=== PATIENT | male | born 1965 | race American Indian/Alaskan Native ===

== ENCOUNTER 2017-08-01 17:52 | Emergency (ER) | payer BC, MEDICARE ==
[2017-08-01 17:52] VITALS: BMI 36.0
[2017-08-01 17:57] VITALS: BP 117/70; RESP 16; TEMP 98.5; O2SAT 98
[2017-08-01] MEDS ORDERED: Sodium Chloride 0.9% 1,000 ML IV STA (18:58)
[2017-08-01 19:36] LABS: BASO % 0.2 % (0.0-2.0); EOS # 0.1 K/uL (0.0-0.7); EOS % 0.3 % (0.0-4.0); LYMPH # 0.5 K/uL (1.0-4.3); MEAN CELL VOLUME 82.7 fl (80.0-94.0); MEAN CORPUSCULAR HEMOGLOBIN 27.1 pg (27.0-31.0); MEAN CORPUSCULAR HGB CONC 32.8 g/dL (33.0-37.0); MEAN PLATELET VOLUME 8.7 fl (7.2-11.7); MONO # 0.7 K/uL (0.0-0.8); MONO % 4.3 % (0.0-10.0); NEUT # 15.7 K/uL (1.8-7.0); NEUT % 92.2 % (50.0-75.0); PLATELET COUNT 171 K/uL (130-400); RBC 5.88 Mil/uL (4.40-5.90); RED CELL DISTRIBUTION WIDTH 14.1 % (11.5-14.5); WHITE BLOOD COUNT 17.1 K/uL (4.8-10.8)
[2017-08-01 19:47] LABS: ALB/GLOB RATIO 1.2 (1.0-2.1); ALBUMIN 4.1 g/dL (3.5-5.0); ALT/SGPT 54 U/L (21-72); AST/SGOT 23 U/L (17-59); BLOOD UREA NITROGEN 23 mg/dl (9-20); CALCIUM 9.2 mg/dL (8.4-10.2); GFR AFRICAN-AMERICAN > 60; GFR NON-AFRICAN AMERICAN > 60; LIPASE 81 U/L (23-300)
--- NOTE | 2017-08-01 19:49 | ED PDOC ---
HPI: General Adult Time Seen by Provider: 08/01/17 18:52 Chief Complaint (Nursing): GI Problem Chief Complaint (Provider): Vomiting and diarrhea History Per: Patient History/Exam Limitations: no limitations Onset/Duration Of Symptoms: Days (x1) Current Symptoms Are (Timing): Still Present Additional Complaint(s): 52 year old male, with past medical history of type 2 diabetes, presented to ED with complaints of vomiting and diarrhea which began earlier today. Patient reports, diarrhea is watery and has had x4 episodes of vomiting which were non bloody and non bilious. Patient is feeling better now. He also indicated that he had a brief syncopal episode on the bus possibly due to dehydration. PCP: Dr. Benitez Past Medical History Reviewed: Historical Data, Nursing Documentation, Vital Signs Vital Signs: Last Vital Signs Temp 98.5 F 08/01/17 17:55 Pulse 67 08/01/17 19:57 Resp 16 08/01/17 17:55 BP 117/70 08/01/17 17:55 Pulse Ox 98 08/01/17 23:43 - Medical History PMH: Back Problems, Diabetes - Surgical History Surgical History: Hernia Repair, Tonsillectomy - Family History Family History: States: Diabetes - Social History Current smoker - smoking cessation education provided: No Alcohol: None Drugs: Denies - Immunization History Hx Tetanus Toxoid Vaccination: No Hx Influenza Vaccination: No Hx Pneumococcal Vaccination: No - Home Medications Home Medications: Ambulatory Orders Medication Instructions Recorded Cyclobenzaprine HCl [Flexeril] 10 mg PO HS #10 tab 01/13/15 Ibuprofen [Motrin] 600 mg PO Q6 PRN #20 tab 01/13/15 MetFORMIN [glucoPHAGE] PO DAILY 01/13/15 Oxycodone HCl/Acetaminophen 1 tab PO Q4 #10 tab 01/13/15 [Percocet 325 mg-5 mg] Ondansetron [Zofran] 4 mg PO Q6H PRN #5 tab 08/01/17 - Allergies Allergies/Adverse Reactions: Allergies Allergy/AdvReac Type Severity Reaction Status Date / Time No Known Allergies Allergy Verified 08/01/17 17:54 Review of Systems ROS Statement: Except As Marked, All Systems Reviewed And Found Negative Constitutional: Negative for: Fever Gastrointestinal: Positive for: Vomiting (x4), Diarrhea. Negative for: Nausea Physical Exam - Reviewed Nursing Documentation Reviewed: Yes Vital Signs Reviewed: Yes - Physical Exam Appears: Positive for: Non-toxic, No Acute Distress Head Exam: Positive for: ATRAUMATIC, NORMAL INSPECTION, NORMOCEPHALIC Skin: Positive for: Normal Color, Warm, Dry Eye Exam: Positive for: Normal appearance, EOMI, PERRL ENT: Positive for: Normal ENT Inspection Neck: Positive for: Normal, Painless ROM Cardiovascular/Chest: Positive for: Regular Rate, Rhythm. Negative for: Murmur Respiratory: Positive for: Normal Breath Sounds. Negative for: Wheezing, Respiratory Distress Gastrointestinal/Abdominal: Positive for: Normal Exam, Soft. Negative for: Tenderness Back: Positive for: Normal Inspection. Negative for: L CVA Tenderness, R CVA Tenderness, Vertebral Tenderness Extremity: Positive for: Normal ROM (upper/lower) Neurologic/Psych: Positive for: Alert, Oriented. Negative for: Motor/Sensory Deficits - Laboratory Results Result Diagrams: 08/01/17 19:30 08/01/17 19:30 - ECG ECG: Positive for: Interpreted By Me, Viewed By Me ECG Rhythm: Positive for: Normal QRS, Sinus Rhythm. Negative for: ST/T Changes Rate: 67 O2 Sat by Pulse Oximetry: 98 (RA) Pulse Ox Interpretation: Normal Medical Decision Making Medical Decision Making: Initial Impression: vomiting, diarrhea, syncope - due to dehydration Initial Plan: CMP Lipase CBC Loperamide 4mg PO Sodium chloride 1000mL IV Ondansetron ODT 4mg PO 19:[address] Yap. Pending labs and reassessment. Scribe Attestation: Documented by Mychal Culver acting as a scribe for Tomi Vasquez MD. Provider Scribe Attestation: All medical record entries made by the Scribe were at my direction and personally dictated by me. I have reviewed the chart and agree that the record accurately reflects my personal performance of the history, physical exam, medical decision making, and the department course for this patient. I have also personally directed, reviewed, and agree with the discharge instructions and disposition. Disposition - Clinical Impression Clinical Impression: Gastroenteritis - Patient ED Disposition Is Patient to be Admitted: Transfer of Care Counseled Patient/Family Regarding: Studies Performed, Diagnosis - Disposition Referrals: [facility] [Outside] [facility] [Outside] Disposition: Transfer of Care Disposition Time: 19:00 Condition: STABLE Additional Instructions: follow up with your primary doctor in 1-2 days return to the ED with any worsening or concerning symptoms Prescriptions: Ondansetron [Zofran] 4 mg PO Q6H PRN #5 tab PRN Reason: Nausea/Vomiting Instructions: Gastroenteritis (ED) Forms: [employer] (Slovak), [facility] ED School/Work Excuse Patient Signed Over To: Jony Yap
[2017-08-01 19:57] VITALS: PULSE 67
--- NOTE | 2017-08-01 19:59 | ED PDOC ---
- Laboratory Results Result Diagrams: 08/01/17 19:30 08/01/17 19:30 - ECG O2 Sat by Pulse Oximetry: 98 (RA) Medical Decision Making Medical Decision Makin:00 Patient endorsed to me from Dr. Vasquez. Pending labs and reevaluation. 2307 CT Abd/ Pelvis FINDINGS: Limitations: Lack of intravenous contrast. Lung bases: Minimal atelectasis/scarring. Mediastinum: Mild mural thickening vs underdistention of distal esophagus. ABDOMEN: Liver: Fatty infiltration. Gallbladder and bile ducts: Calcified gallstone. No significant ductal dilation. Pancreas: Unremarkable. No ductal dilation. Spleen: No splenomegaly. Adrenals: Mild hypertrophy of adrenal glands. Minimal stranding of adrenal glands, nonspecific. Kidneys and ureters: Minimal stranding about kidneys, nonspecific. Probable 5.2 cm RIGHT renal cyst. Too small to characterize lesion within LEFT kidney. No renal calculi. No hydronephrosis. Stomach and bowel: Few scattered diverticula within colon. No associated inflammatory stranding. Segmental areas of probable underdistention of colon. No definite mural thickening. No obstruction. PELVIS: Appendix: Normal caliber. No inflammation. Bladder: Unremarkable. No stones. Reproductive: Mildly enlarged prostate. ABDOMEN and PELVIS: Intraperitoneal space: No significant fluid collection. No free air. Bones/joints: Probable bone island. Degenerative changes of spine. No acute fracture. Soft tissues: Tiny umbilical hernia containing fat. Vasculature: Unremarkable. No aneurysm. Lymph nodes: No pathologically enlarged lymph nodes. IMPRESSION: 1. Diverticulosis without definite CT evidence of diverticulitis. 2. Prostate enlargement. Followup as clinically warranted. 3. Incidental/non-acute findings are described above. Dictated By: Vik Lang MD Dictated Date/Time: 08/01/172307 Signed By: Vik Lang MD Date Signed: 2307 Transcribed By: ELROY Transcribe Date/Time : 08/01/172307 AC02/JESSICA 2310 Patient made aware of report on CT. pt tolerated PO and is stable for discharge. Disposition Counseled Patient/Family Regarding: Studies Performed, Diagnosis, Need For Followup - Clinical Impression Clinical Impression: Gastroenteritis - POA Present On Arrival: None - Disposition Referrals: [facility] [Outside] [facility] [Outside] Disposition: Routine/Home Disposition Time: 10:45 Condition: STABLE Additional Instructions: follow up with your primary doctor in 1-2 days return to the ED with any worsening or concerning symptoms Prescriptions: Ondansetron [Zofran] 4 mg PO Q6H PRN #5 tab PRN Reason: Nausea/Vomiting Instructions: Gastroenteritis (ED) Forms: [employer] ([place] Citizen), [facility] ED School/Work Excuse
[2017-08-01 21:34] LABS: LYMPHOCYTE 6 % (20-50); MONOCYTE 3 % (0-10); NEUTROPHIL 91 % (42-75); PLATELET ESTIMATE NORMAL (NORMAL); TOTAL CELLS COUNTED 100
--- NOTE | 2017-08-01 23:08 | CT ---
EXAM: CT Abdomen and Pelvis Without Intravenous Contrast CLINICAL HISTORY: 52 years old, male; Signs and symptoms; Vomiting and other: Diarrhea; Prior surgery; Surgery date: 6+ months; Surgery type: Hernia repair lt groin about 32 yrs ago; Additional info: Abd pain TECHNIQUE: Axial computed tomography images of the abdomen and pelvis without intravenous contrast. All CT scans at this facility use one or more dose reduction techniques, viz.: automated exposure control; ma/kV adjustment per patient size (including targeted exams where dose is matched to indication; i.e. head); or iterative reconstruction technique. Coronal and sagittal reformatted images were created and reviewed. COMPARISON: No relevant prior studies available. FINDINGS: Limitations: Lack of intravenous contrast. Lung bases: Minimal atelectasis/scarring. Mediastinum: Mild mural thickening vs underdistention of distal esophagus. ABDOMEN: Liver: Fatty infiltration. Gallbladder and bile ducts: Calcified gallstone. No significant ductal dilation. Pancreas: Unremarkable. No ductal dilation. Spleen: No splenomegaly. Adrenals: Mild hypertrophy of adrenal glands. Minimal stranding of adrenal glands, nonspecific. Kidneys and ureters: Minimal stranding about kidneys, nonspecific. Probable 5.2 cm RIGHT renal cyst. Too small to characterize lesion within LEFT kidney. No renal calculi. No hydronephrosis. Stomach and bowel: Few scattered diverticula within colon. No associated inflammatory stranding. Segmental areas of probable underdistention of colon. No definite mural thickening. No obstruction. PELVIS: Appendix: Normal caliber. No inflammation. Bladder: Unremarkable. No stones. Reproductive: Mildly enlarged prostate. ABDOMEN and PELVIS: Intraperitoneal space: No significant fluid collection. No free air. Bones/joints: Probable bone island. Degenerative changes of spine. No acute fracture. Soft tissues: Tiny umbilical hernia containing fat. Vasculature: Unremarkable. No aneurysm. Lymph nodes: No pathologically enlarged lymph nodes. IMPRESSION: 1. Diverticulosis without definite CT evidence of diverticulitis. 2. Prostate enlargement. Followup as clinically warranted. 3. Incidental/non-acute findings are described above.
== END 2017-08-01 23:52 | disposition home or self-care (01) ==
LOC: H.ER 17:52
DX: K52.9 Noninfective gastroenteritis and colitis, unspecified (principal); E11.9 Type 2 diabetes mellitus without complications; Z79.84 Long term (current) use of oral hypoglycemic drugs
CPT/HCPCS: 74176; 80053; 82948; 83690; 85025; 96360; 99284; J7040

== ENCOUNTER 2017-10-14 16:23 | Emergency (ER) | payer BC, MEDICARE, OTHER ==
[2017-10-14 16:23] VITALS: BMI 36.0
[2017-10-14 16:33] VITALS: TEMP 97.9
--- NOTE | 2017-10-14 17:22 | ED PDOC ---
HPI: Abdomen Time Seen by Provider: 10/14/17 16:43 Chief Complaint (Nursing): Abdominal Pain Chief Complaint (Provider): Abdomial pain History Per: Patient History/Exam Limitations: no limitations Additional Complaint(s): Pt. presents with crampy mid abdominal pain associated with 2 episodes of large nonbloody diarrhea starting at 5 am. Pt. reports being at a work picnic yesterday, had some chicken, felt well until 5 am when crampy abd. pain and diarrhea started. Pt. received call from coworker who also had similar symptoms this am. Pt. otherwise feels well, no fevers, no n/v. Past Medical History Reviewed: Historical Data, Nursing Documentation, Vital Signs Vital Signs: Last Vital Signs Temp 97.9 F 10/14/17 16:31 Pulse 105 H 10/14/17 16:31 Resp 20 10/14/17 16:31 BP 138/84 10/14/17 16:31 Pulse Ox 97 10/14/17 18:37 - Medical History PMH: Back Problems, Diabetes - Surgical History Surgical History: Hernia Repair, Tonsillectomy - Family History Family History: States: Diabetes - Immunization History Hx Tetanus Toxoid Vaccination: No Hx Influenza Vaccination: No Hx Pneumococcal Vaccination: No - Home Medications Home Medications: Ambulatory Orders Medication Instructions Recorded Cyclobenzaprine HCl [Flexeril] 10 mg PO HS #10 tab 01/13/15 Ibuprofen [Motrin] 600 mg PO Q6 PRN #20 tab 01/13/15 MetFORMIN [glucoPHAGE] PO DAILY 01/13/15 Oxycodone HCl/Acetaminophen 1 tab PO Q4 #10 tab 01/13/15 [Percocet 325 mg-5 mg] Ondansetron [Zofran] 4 mg PO Q6H PRN #5 tab 08/01/17 - Allergies Allergies/Adverse Reactions: Allergies Allergy/AdvReac Type Severity Reaction Status Date / Time No Known Allergies Allergy Verified 10/14/17 16:31 Review of Systems ROS Statement: Except As Marked, All Systems Reviewed And Found Negative Constitutional: Negative for: Fever, Chills ENT: Positive for: Ear Pain (right ear infection, in treatment) Gastrointestinal: Positive for: Abdominal Pain, Diarrhea. Negative for: Nausea , Vomiting, Hematochezia Physical Exam - Reviewed Nursing Documentation Reviewed: Yes Vital Signs Reviewed: Yes - Physical Exam Appears: Positive for: Well Skin: Positive for: Normal Color Eye Exam: Positive for: Normal appearance ENT: Positive for: TM Is/Are (right TM mild erythema; left TM normal) Neck: Positive for: Supple Cardiovascular/Chest: Positive for: Regular Rate, Rhythm Respiratory: Positive for: Normal Breath Sounds Gastrointestinal/Abdominal: Positive for: Normal Exam, Soft. Negative for: Tenderness Neurologic/Psych: Positive for: Alert, Oriented - Laboratory Results Result Diagrams: 10/14/17 17:39 10/14/17 17:39 - ECG O2 Sat by Pulse Oximetry: 97 (RA) Pulse Ox Interpretation: Normal Medical Decision Making Medical Decision Making: Impression: Abdominal pain Plan: -- Labs -- IV Fluids Reassessment, pt. reports feeling better, labs discussed with pt. Re-exam, abdomen remain soft/nt, repeat hr 78, no distress. BRAT diet and increased po fluids stressed with instruction to return if recurrent pain, fevers, or new concerns. Disposition - Clinical Impression Clinical Impression: Abdominal pain, Otitis media - Patient ED Disposition Is Patient to be Admitted: No - Disposition Disposition: Routine/Home Condition: IMPROVED Instructions: Ear Infections (Otitis Media), Stomach Ache and Stomach Upset Forms: [facility] (Lao) - POA Present On Arrival: None
[2017-10-14 17:42] LABS: BASO # 0.1 K/uL (0.0-0.2); BASO % 0.8 % (0.0-2.0); EOS # 0.2 K/uL (0.0-0.7); EOS % 2.9 % (0.0-4.0); HEMOGLOBIN 14.1 g/dL (12.0-18.0); LYMPH # 1.7 K/uL (1.0-4.3); MEAN CELL VOLUME 82.1 fl (80.0-94.0); MEAN CORPUSCULAR HEMOGLOBIN 27.6 pg (27.0-31.0); MEAN CORPUSCULAR HGB CONC 33.6 g/dL (33.0-37.0); MEAN PLATELET VOLUME 8.6 fl (7.2-11.7); MONO # 0.6 K/uL (0.0-0.8); NEUT # 4.1 K/uL (1.8-7.0); NEUT % 61.3 % (50.0-75.0); RBC 5.1 Mil/uL (4.40-5.90); RED CELL DISTRIBUTION WIDTH 13.5 % (11.5-14.5); WHITE BLOOD COUNT 6.7 K/uL (4.8-10.8)
[2017-10-14 17:55] LABS: ALB/GLOB RATIO 1.3 (1.0-2.1); ALBUMIN 3.8 g/dL (3.5-5.0); ALT/SGPT 41 U/L (21-72); AST/SGOT 31 U/L (17-59); BLOOD UREA NITROGEN 16 mg/dl (9-20); GFR AFRICAN-AMERICAN > 60; GFR NON-AFRICAN AMERICAN > 60; LIPASE 73 U/L (23-300)
[2017-10-14] MEDS: Sodium Chloride 0.9% 1,000 ML IV SCH ×2 (18:06→18:38)
[2017-10-14 19:23] VITALS: BP 116/74; PULSE 66; RESP 18; O2SAT 100
== END 2017-10-14 19:20 | disposition home or self-care (01) ==
LOC: H.ER 16:23
DX: R10.9 Unspecified abdominal pain (principal); H66.91 Otitis media, unspecified, right ear; E11.9 Type 2 diabetes mellitus without complications; Z79.84 Long term (current) use of oral hypoglycemic drugs
CPT/HCPCS: 80053; 83690; 85025; 96360; 99283; J7030

== ENCOUNTER 2017-11-24 16:12 | Emergency (ER) | payer BC, MEDICARE, OTHER ==
[2017-11-24 16:13] VITALS: BMI 36.0
--- NOTE | 2017-11-24 17:59 | ED PDOC ---
HPI: General Adult Time Seen by Provider: 11/24/17 16:50 Chief Complaint (Nursing): ENT Problem Chief Complaint (Provider): Sinusitis History Per: Patient History/Exam Limitations: no limitations Onset/Duration Of Symptoms: Days Current Symptoms Are (Timing): Still Present Additional Complaint(s): 52 year old male with PMHx of diabetes presents to the ED for an evaluation of sinus pressure and clogged ear sensation onset 3 days ago. 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 Denies runny nose, cough or congestion. Notes pressure is worse when pending over PMD: No Family Provider Past Medical History Reviewed: Historical Data, Nursing Documentation, Vital Signs Vital Signs: Last Vital Signs Temp 99.3 F 11/24/17 16:27 Pulse 98 H 11/24/17 16:27 Resp 16 11/24/17 16:27 BP 146/77 11/24/17 16:27 Pulse Ox 98 11/24/17 18:11 - Medical History PMH: Back Problems, Diabetes - Surgical History Surgical History: Hernia Repair, Tonsillectomy - Family History Family History: States: Diabetes - Social History Current smoker - smoking cessation education provided: No Alcohol: None Drugs: Denies - Immunization History Hx Tetanus Toxoid Vaccination: No Hx Influenza Vaccination: No Hx Pneumococcal Vaccination: No - Home Medications Home Medications: Ambulatory Orders Medication Instructions Recorded Cyclobenzaprine HCl [Flexeril] 10 mg PO HS #10 tab 01/13/15 Ibuprofen [Motrin] 600 mg PO Q6 PRN #20 tab 01/13/15 MetFORMIN [glucoPHAGE] PO DAILY 01/13/15 Oxycodone HCl/Acetaminophen 1 tab PO Q4 #10 tab 01/13/15 [Percocet 325 mg-5 mg] Ondansetron [Zofran] 4 mg PO Q6H PRN #5 tab 08/01/17 Fluticasone Propionate [Flonase] 1 spr NS BID #1 spr 11/24/17 Methylprednisolone [Medrol Dose 4 mg PO DAILY #21 mg 11/24/17 Pack (21 tabs)] - Allergies Allergies/Adverse Reactions: Allergies Allergy/AdvReac Type Severity Reaction Status Date / Time No Known Allergies Allergy Verified 10/14/17 16:31 Review of Systems ROS Statement: Except As Marked, All Systems Reviewed And Found Negative Constitutional: Negative for: Fever ENT: Positive for: Ear Pain, Nose Pain. Negative for: Ear Discharge, Nose Discharge, Nose Congestion, Throat Swelling Respiratory: Negative for: Cough Physical Exam - Reviewed Nursing Documentation Reviewed: Yes Vital Signs Reviewed: Yes - Physical Exam Appears: Positive for: Well, Non-toxic, No Acute Distress Head Exam: Positive for: ATRAUMATIC, NORMAL INSPECTION, NORMOCEPHALIC Skin: Positive for: Normal Color, Warm, Dry Eye Exam: Positive for: Normal appearance ENT: Negative for: Normal ENT Inspection (ethmoid and maxillary sinus tenderness ) Cardiovascular/Chest: Positive for: Regular Rate, Rhythm. Negative for: Murmur Respiratory: Positive for: Normal Breath Sounds. Negative for: Decreased Breath Sounds, Wheezing, Respiratory Distress Neurologic/Psych: Positive for: Alert, Oriented (x3). Negative for: Motor/ Sensory Deficits - ECG O2 Sat by Pulse Oximetry: 98 (RA) Pulse Ox Interpretation: Normal Medical Decision Making Medical Decision Making: Time: 1649 Initial Impression: sinusitis Initial Plan: --Reevaluation Scribe Attestation: Documented by Shanda Garrido, acting as a scribe for Aishwarya Wu PA-C. Provider Scribe Attestation: All medical record entries made by the Scribe were at my direction and personally dictated by me. I have reviewed the chart and agree that the record accurately reflects my personal performance of the history, physical exam, medical decision making, and the department course for this patient. I have also personally directed, reviewed, and agree with the discharge instructions and disposition. Disposition - Clinical Impression Clinical Impression: Acute sinusitis - Disposition Disposition: Routine/Home Disposition Time: 18:13 Condition: GOOD Prescriptions: Fluticasone Propionate [Flonase] 1 spr NS BID #1 spr Methylprednisolone [Medrol Dose Pack (21 tabs)] 4 mg PO DAILY #21 mg Instructions: Sinusitis in Adults Forms: [facility] (Eritrean), [facility] ED School/Work Excuse
[2017-11-24 19:10] VITALS: BP 118/89; PULSE 78; RESP 18; TEMP 98; O2SAT 99
== END 2017-11-24 19:08 | disposition home or self-care (01) ==
LOC: H.ER 16:12
DX: J01.90 Acute sinusitis, unspecified (principal); E11.9 Type 2 diabetes mellitus without complications; Z79.84 Long term (current) use of oral hypoglycemic drugs

== ENCOUNTER 2018-01-23 14:36 | Emergency (ER) | payer OTHER ==
[2018-01-23 14:37] VITALS: BMI 36.0
[2018-01-23 14:52] VITALS: TEMP 97.9; O2SAT 98
--- NOTE | 2018-01-23 16:03 | ED PDOC ---
HPI: Trauma/Fall - HPI Time Seen by Provider: 01/23/18 15:25 Chief Complaint (Nursing): Back Pain Chief Complaint (Provider): Back and neck pain History Per: Patient History/Exam Limitations: no limitations Associated Symptoms: denies: Dizziness, LOC Additional Complaint(s): 52 year old male presents to the ED for evaluation of left sided neck and back pain. Patient reports he was on the treadmill at the gym, when it suddenly stopped and began going in reverse causing him to fall back hitting his neck and back. Patient states he took Aleve at 06:30 this morning with little improvement. He indicates the neck pain is a 5/10 and back pain is a 7/10. Denies numbness, headache, dizziness, chest pain, abdominal pain, LOC, vision change, weakness, fever, saddle anesthesia, or incontinence. PMD: Dr. Benitez Past Medical History Reviewed: Historical Data, Nursing Documentation, Vital Signs Vital Signs: Last Vital Signs Temp 97.9 F 01/23/18 14:51 Pulse 96 H 01/23/18 14:51 Resp 18 01/23/18 14:51 BP 145/92 H 01/23/18 14:51 Pulse Ox 98 01/23/18 14:51 - Medical History PMH: Back Problems, Diabetes Other PMH: Scoliosis - Surgical History Surgical History: Hernia Repair, Tonsillectomy Other surgeries: Lipoma removed - Family History Family History: States: Diabetes - Social History Current smoker - smoking cessation education provided: No Alcohol: None Drugs: Denies - Home Medications Home Medications: Ambulatory Orders Medication Instructions Recorded Cyclobenzaprine HCl [Flexeril] 10 mg PO HS #10 tab 01/13/15 Ibuprofen [Motrin] 600 mg PO Q6 PRN #20 tab 01/13/15 Oxycodone HCl/Acetaminophen 1 tab PO Q4 #10 tab 01/13/15 [Percocet 325 mg-5 mg] RX: MetFORMIN [glucoPHAGE] PO DAILY 01/13/15 Ondansetron [Zofran] 4 mg PO Q6H PRN #5 tab 08/01/17 Fluticasone Propionate [Flonase] 1 spr NS BID #1 spr 11/24/17 Methylprednisolone [Medrol Dose 4 mg PO DAILY #21 mg 11/24/17 Pack (21 tabs)] Cyclobenzaprine [Cyclobenzaprine 10 mg PO Q8 PRN #12 tab 01/23/18 HCl] Meloxicam [Mobic] 15 mg PO DAILY #10 tab 01/23/18 - Allergies Allergies/Adverse Reactions: Allergies Allergy/AdvReac Type Severity Reaction Status Date / Time No Known Allergies Allergy Verified 10/14/17 16:31 Review of Systems ROS Statement: Except As Marked, All Systems Reviewed And Found Negative Eyes: Negative for: Vision Change Cardiovascular: Negative for: Chest Pain Gastrointestinal: Negative for: Abdominal Pain Genitourinary Male: Negative for: Incontinence Musculoskeletal: Positive for: Neck Pain, Back Pain Neurological: Negative for: Numbness, Dizziness, Other (LOC) Physical Exam - Reviewed Nursing Documentation Reviewed: Yes Vital Signs Reviewed: Yes - Physical Exam Comments: GENERAL APPEARANCE: Patient is awake, alert, oriented x 3, in no acute distress. Resting comfortably. SKIN: Warm, dry; (-) cyanosis HEAD: (-) scalp swelling or tenderness EYES: (-) conjunctival pallor, (-) scleral icterus. ENMT: Mandible FROM, nontender. (-) sinus or facial bone tenderness; mucous membranes are moist. Airway patent, (-) stridor. NECK: Full ROM, (+) supple, (+) left paracervical tenderness, (-) midline cervical tenderness. CHEST AND RESPIRATORY: (-) rales, (-) rhonchi, (-) wheezes; breath sounds equal bilaterally. Respirations even and nonlabored. HEART AND CARDIOVASCULAR: (-) irregularity ABDOMEN AND GI: Soft; (-) tenderness. BACK: (+) mildline lumbar tenderness, (-) paralumbar tenderness EXTREMITIES: (-) deformity. NEURO AND PSYCH: Mental status as above. inspector and sorter: Pupils equal and reactive; EOMI; (-) facial asymmetry; tongue and uvula midline. Gait: Steady. Speech: clear. Cerebellar tests grossly intact. - ECG O2 Sat by Pulse Oximetry: 98 (RA) Pulse Ox Interpretation: Normal Medical Decision Making Medical Decision Making: Initial Impression: Acute cervical strain, lower back pain s/p fall Initial Plan: --Lumbar spine CT --Toradol 30mg IM --Valium 5mg PO (Not driving home) 1750 CT reviewed, radiology report follows Date of service: 01/23/2018 PROCEDURE: CT Lumbar Spine without contrast HISTORY: s/p fall, midline tenderness COMPARISON: None available. TECHNIQUE: Axial computed tomography images were obtained of the lumbar spine without the use of intravenous contrast. Coronal and sagittal reformatted images were creat ed and reviewed. Radiation dose: Total exam DLP = 921.96 mGy-cm. This CT exam was performed using one or more of the following dose reduction techniques: Automated exposure control, adjustment of the mA and/or kV according to patient size, and/or use of iterative reconstruction technique. FINDINGS: VERTEBRAE: There is a grade 1 anterolisthesis at L3-4 with lumbar curvature otherwise well aligned. No spondylolysis, however, marked facet degenerative changes at L3-4 are the apparent cause of the spondylolisthesis. No fracture. No destructive bony lesion appreciated. Visualized prevertebral paraspinal soft tissues appear diffusely unremarkable. L5 appears sacralized. DISCS/SPINAL CANAL/NEURAL FORAMINA: L1-2: Unremarkable. L2-3: Unremarkable. L3-4: Borderline central stenosis caused by spondylolisthesis at this level with symmetric, borderline bilateral neural foraminal stenoses. L4-5: Lateral recesses are encroached by disc osteophyte complex symmetrically and there is moderate degenerative neural foraminal stenosis bilaterally due to disc osteophyte changes combining with facet joint degenerative arthropathy. L5-S1: Unremarkable. OTHER FINDINGS: None. IMPRESSION: 1. Grade 1 anterolisthesis L3-4 resulting in borderline central canal and bilateral neural foraminal stenoses. Positional L5 appears sacralized. 2. Moderate degenerative neural foraminal stenosis L4-5 with lateral recess is encroached by disc osteophyte complex appears circumferential at L4-5 as well. 3. No gross disc herniation however MRI is more sensitive for evaluation of disc material and can be performed if clinically warranted. Repeat BP: 137/81 Repeat HR: 86 On re-evaluation, patient reports improvement of symptoms. On exam, patient remains AAOx3, in no acute distress. Lungs clear to auscultation, cardiac RRR, repeat neuro exam shows no focal findings. Vitals stable. Lab/Diagnostic results d/w the patient in great detail. Diagnosis of acute low back pain, cervical strain s/p fall d/w the patient. Based on history, exam and diagnostic results, plan will be for outpatient follow up with PMD/clinic/ortho. Patient instructed to follow-up with pmd / referral provided / the clinic in 1- 2 days without fail. Advised to take medication as prescribed. Return to the emergency room at any time for any new or worsening symptoms. Patient states he fully agrees with and understands discharge instructions. States that he agrees with the plan and disposition. Verbalized and repeated discharge instructions and plan. I have given the patient opportunity to ask any additional questions. Scribe Attestation: Documented by Mychal Culver acting as a scribe for Cindy GONZALEZ Provider Scribe Attestation: All medical record entries made by the Scribe were at my direction and personally dictated by me. I have reviewed the chart and agree that the record accurately reflects my personal performance of the history, physical exam, medical decision making, and the department course for this patient. I have also personally directed, reviewed, and agree with the discharge instructions and disposition. Disposition - Clinical Impression Clinical Impression: Low back pain, Cervical strain, Fall - Patient ED Disposition Is Patient to be Admitted: No Counseled Patient/Family Regarding: Studies Performed, Diagnosis, Need For Followup, Rx Given - Disposition Referrals: Wilfredo Hurd III, MD [Staff Provider] - [facility] [Outside] Disposition: Routine/Home Disposition Time: 17:55 Condition: IMPROVED Additional Instructions: The emergency medical care you received today was directed at your acute symptoms. If you were prescribed any medication, please fill it and take as directed. It may take several days for your symptoms to resolve. Return to the Emergency Department if your symptoms worsen, do not improve, or if you have any other problems. Please contact your doctor in 2 days for re-evaluation and follow up / or call one of the physicians/clinics you have been referred to that are listed on the Patient Visit Information form that is included in your discharge packet. Bring any paperwork you were given at discharge with you along with any medications you are taking to your follow up visit. Our treatment cannot replace ongoing medical care by a primary care provider (PCP) outside of the emergency department. Prescriptions: Cyclobenzaprine [Cyclobenzaprine HCl] 10 mg PO Q8 PRN #12 tab PRN Reason: Muscle Spasm Meloxicam [Mobic] 15 mg PO DAILY #10 tab Instructions: Low Back Pain (DC), Cervical Muscle Strain (DC), Neck Sprain (DC) Forms: [facility] (E[place]ian), [facility] ED School/Work Excuse Print Language: GREENLANDIC - POA Present On Arrival: Falls Or Trauma
--- NOTE | 2018-01-23 17:22 | CT ---
Date of service: 01/23/2018 PROCEDURE: CT Lumbar Spine without contrast HISTORY: s/p fall, midline tenderness COMPARISON: None available. TECHNIQUE: Axial computed tomography images were obtained of the lumbar spine without the use of intravenous contrast. Coronal and sagittal reformatted images were created and reviewed. Radiation dose: Total exam DLP = 921.96 mGy-cm. This CT exam was performed using one or more of the following dose reduction techniques: Automated exposure control, adjustment of the mA and/or kV according to patient size, and/or use of iterative reconstruction technique. FINDINGS: VERTEBRAE: There is a grade 1 anterolisthesis at L3-4 with lumbar curvature otherwise well aligned. No spondylolysis, however, marked facet degenerative changes at L3-4 are the apparent cause of the spondylolisthesis. No fracture. No destructive bony lesion appreciated. Visualized prevertebral paraspinal soft tissues appear diffusely unremarkable. L5 appears sacralized. DISCS/SPINAL CANAL/NEURAL FORAMINA: L1-2: Unremarkable. L2-3: Unremarkable. L3-4: Borderline central stenosis caused by spondylolisthesis at this level with symmetric, borderline bilateral neural foraminal stenoses. L4-5: Lateral recesses are encroached by disc osteophyte complex symmetrically and there is moderate degenerative neural foraminal stenosis bilaterally due to disc osteophyte changes combining with facet joint degenerative arthropathy. L5-S1: Unremarkable. OTHER FINDINGS: None. IMPRESSION: 1. Grade 1 anterolisthesis L3-4 resulting in borderline central canal and bilateral neural foraminal stenoses. Positional L5 appears sacralized. 2. Moderate degenerative neural foraminal stenosis L4-5 with lateral recess is encroached by disc osteophyte complex appears circumferential at L4-5 as well. 3. No gross disc herniation however MRI is more sensitive for evaluation of disc material and can be performed if clinically warranted.
[2018-01-23 17:59] VITALS: BP 137/81; PULSE 86; RESP 15
== END 2018-01-23 17:59 | disposition home or self-care (01) ==
LOC: H.ER 14:36
DX: M54.5 Low back pain (principal); S16.1XXA Strain of muscle, fascia and tendon at neck level, initial encounter; E11.9 Type 2 diabetes mellitus without complications; M41.9 Scoliosis, unspecified; M43.16 Spondylolisthesis, lumbar region; M48.061 Spinal stenosis, lumbar region without neurogenic claudication; M51.36 Other intervertebral disc degeneration, lumbar region; S39.012A Strain of muscle, fascia and tendon of lower back, initial encounter; Z79.84 Long term (current) use of oral hypoglycemic drugs; W19.XXXA Unspecified fall, initial encounter; Y93.A1 Activity, exercise machines primarily for cardiorespiratory conditioning; Y92.39 Other specified sports and athletic area as the place of occurrence of the external cause
CPT/HCPCS: 72131; 96372; 99283; J1885